=== PATIENT | male | born 1945 | race Caucasian/White ===

== ENCOUNTER 2018-08-11 13:59 | Outpatient (CLI) | payer MEDICARE, MEDICAID ==
[2018-08-11] MEDS ORDERED: SIMV40TA3 PO (14:30)
[2018-08-11] MEDS ORDERED: CHLO25TA PO (14:30)
[2018-08-11] MEDS ORDERED: AMLO10TA8 PO (14:30)
[2018-08-11] MEDS ORDERED: LISI40TA PO (14:30)
[2018-08-11 15:10] LABS: MICROSCOPIC NOT IND
[2018-08-11 15:13] LABS: BASOPHILS # (AUTO) 0.01 x10^3/uL (0-0.1); BASOPHILS % (AUTO) 0 % (0-1); EOSINOPHILS # (AUTO) 0.15 x10^3/uL (0-0.4); EOSINOPHILS % (AUTO) 1 % (1-7); LYMPHOCYTES # (AUTO) 2.13 x10^3/uL (1-3.4); LYMPHOCYTES % (AUTO) 20 % (22-44); MD NO; MEAN CORPUSCULAR HEMOGLOBIN 32.2 pg (27.5-34.5); MEAN CORPUSCULAR HGB CONC 33.7 g/dL (33.2-36.2); MEAN CORPUSCULAR VOLUME 95.5 fL (81-97); MEAN PLATELET VOLUME 7.7 fL (7.4-10.4); MONOCYTES # (AUTO) 0.66 x10^3/uL (0.2-0.8); MONOCYTES % (AUTO) 6 % (2-9); NEUTROPHILS % (AUTO) 72 % (42-75); PLATELET COUNT 282 x10^3/uL (130-400); RED BLOOD COUNT 4.02 x10^6/uL (4.38-5.82); RED CELL DISTRIBUTION WIDTH 14.5 % (9.4-14.8)
[2018-08-11 15:14] LABS: CULTURE INDICATED? NO
[2018-08-11 15:26] LABS: ALANINE AMINOTRANSFERASE 34 U/L (12-78); ALBUMIN 3.9 g/dL (3.4-5.0); ANION GAP 7 mmol/L (5-15); CALCIUM 8.9 mg/dL (8.5-10.1); CHLORIDE 103 mmol/L (98-107); CREATININE 1.02 mg/dL (0.7-1.3)
[2018-08-11 15:28] LABS: ALKALINE PHOSPHATASE 57 U/L (45-117); BILIRUBIN,TOTAL 0.4 mg/dL (0.2-1.0); TOTAL PROTEIN 7.1 g/dL (6.4-8.2)
[2018-08-11 16:29] LABS: INTERNATIONAL NORMALIZED RATIO 0.91 (0.93-1.1); PROTHROMBIN TIME 9.6 Seconds (9.6-11.5)
== END 2018-08-11 23:59 | disposition home or self-care (01) ==
LOC: STAR 13:59
PROVIDERS: ATTEND Neurological Surgery
DX: M48.02 Spinal stenosis, cervical region (principal)
CPT/HCPCS: 36415; 80053; 81003; 85025; 85610; 85730; 93005

== ENCOUNTER 2018-08-26 06:51 | Inpatient (IN) | payer MEDICARE, MEDICAID ==
[~2018-08-26] VITALS: Ht 165.1 cm; Wt 81.0 kg
[~2018-08-26 06:51] MED LIST: AMLO10TA8 PO; CHLO25TA PO; LISI40TA PO; SIMV40TA3 PO
[2018-08-26] MEDS ORDERED: BUPIVACAINE/PF-EPI 0.5% 1:200K ONE (06:52)
[2018-08-26] MEDS ORDERED: THROMBIN 20,000 UNIT VIAL TP ONE (06:53)
[2018-08-26] MEDS ORDERED: BACITRACIN 50,000 UNIT ONE (06:53)
[2018-08-26] MEDS ORDERED: LACTATED RINGERS 1,000 ML IV SCH (07:21)
[2018-08-26] MEDS ORDERED: LIDOCAINE-MPF 1%, 2ML INFIL ONE (07:30)
[2018-08-26] MEDS ORDERED: CEFAZOLIN 1,000 MG ONE (09:56)
[2018-08-26] MEDS ORDERED: PROPOFOL 10 MG/ML, 20ML ONE (09:56)
[2018-08-26] MEDS ORDERED: EPHEDRINE 50 MG/ML, 1ML ONE (09:56)
[2018-08-26] MEDS ORDERED: PROPOFOL 10 MG/ML, 50ML ONE (09:56)
[2018-08-26] MEDS ORDERED: FENTANYL PF 250 MCG/5ML ONE (10:00)
[2018-08-26] MEDS ORDERED: BUPIVACAINE/PF-EPI 0.5% 1:200K INFIL ONE (10:18)
[2018-08-26] MEDS ORDERED: BACITRACIN 50,000 UNIT IM ONE (10:18)
[2018-08-26] MEDS ORDERED: ALBUTEROL SULFATE 2.5 MG/3 ML NPPB PRN (11:30)
[2018-08-26] MEDS ORDERED: MEPERIDINE/PF 25MG/0.5ML IVPush PRN (11:30)
[2018-08-26] MEDS ORDERED: ACETAMINOPHEN 325 MG TABLET PO PRN (11:30)
[2018-08-26] MEDS ORDERED: DIAZEPAM 5 MG/ML, 2ML IVPush PRN (11:30)
[2018-08-26] MEDS ORDERED: PROMETHAZINE 25 MG/ML, 1ML IV PRN (11:30)
[2018-08-26] MEDS ORDERED: hydrALAzine 20 MG/ML, 1ML IV PRN (11:30)
[2018-08-26] MEDS ORDERED: OXYcodone 5 MG/5 ML ORAL.SOL UDC PO PRN (11:30)
[2018-08-26] MEDS ORDERED: FENTANYL PF 100 MCG/2ML IV PRN (11:30)
[2018-08-26] MEDS ORDERED: LABETALOL 5MG/ML, 20ML IV PRN (11:30)
[2018-08-26] MEDS ORDERED: HYDROmorphone PCA 30 MG/30 ML IV PRN (12:30)
[2018-08-26] MEDS ORDERED: DIPHENHYDRAMINE 50 MG/ML, 1ML IVPush PRN (12:30)
[2018-08-26] MEDS ORDERED: MAGNESIUM HYDROXIDE 8%, 30ML UDC PO PRN (12:30)
[2018-08-26] MEDS ORDERED: HYDROmorphone 1 MG/ML, 1ML AMP IVPush PRN (12:30)
[2018-08-26] MEDS ORDERED: BISACODYL 10 MG SUPP PR PRN (12:30)
[2018-08-26] MEDS ORDERED: ONDANSETRON 2MG/ML, 2ML IVPush PRN (12:30)
[2018-08-26] MEDS ORDERED: PHARMACY MAY ADJ FOR RENAL FX MC PRN (12:30)
[2018-08-26] MEDS ORDERED: PROMETHAZINE 25 MG/ML, 1ML IM PRN (12:30)
[2018-08-26] MEDS ORDERED: HYDROmorphone 1 MG/ML, 1ML AMP ONE (12:39)
[2018-08-26] MEDS ORDERED: OXYcodone 5 MG/5 ML ORAL.SOL UDC ONE (12:39)
[2018-08-26] MEDS: HYDROmorphone 2 MG/ML, 1ML IVPush PRN ×2 (12:47→13:16)
[2018-08-26] MEDS: NS + 20MEQ KCL 1,000 ML IV SCH (14:30)
[2018-08-26] MEDS: OXYcodone/APAP 5/325MG TABLET PO PRN ×2 (16:46→22:21)
[2018-08-26] MEDS ORDERED: PNEUMOCOCCAL 23 VACCINE IM-VACC ONE (17:30)
[2018-08-26] MEDS: CEFAZOLIN PMX 1GM/50ML 50 ML IVPB SCH (19:08)
[2018-08-26] MEDS: SODIUM CHLORIDE FLUSH 10ML SYR IVF SCH (19:51)
[2018-08-26] MEDS: SIMVASTATIN 40 MG TABLET PO SCH (19:51)
[2018-08-26 21:47] VITALS: BP 111/53
[2018-08-27 00:39] VITALS: BP 125/68
[2018-08-27] MEDS: NS + 20MEQ KCL 1,000 ML IV SCH ×2 (02:24→13:06)
[2018-08-27] MEDS: OXYcodone/APAP 5/325MG TABLET PO PRN ×4 (02:30→23:06)
[2018-08-27] MEDS: CEFAZOLIN PMX 1GM/50ML 50 ML IVPB SCH (03:48)
[2018-08-27 04:33] VITALS: BP 121/62
[2018-08-27 08:00] VITALS: BP 124/64
[2018-08-27] MEDS: SENNA/DOCUSATE TABLET PO SCH (08:01)
[2018-08-27] MEDS: CHLORTHALIDONE 25 MG TABLET PO SCH (08:01)
[2018-08-27] MEDS: AMLODIPINE 10 MG TAB PO SCH (08:02)
[2018-08-27] MEDS: LISINOPRIL 20 MG TABLET PO SCH (08:02)
[2018-08-27] MEDS: SODIUM CHLORIDE FLUSH 10ML SYR IVF SCH ×2 (08:03→21:00)
[2018-08-27] MEDS ORDERED: PNEUMOCOCCAL 23 VACCINE IM-VACC ONE (09:00)
[2018-08-27] MEDS: TIZANIDINE 4MG TABLET PO PRN (14:25)
[2018-08-27 15:33] VITALS: BP 93/54
[2018-08-27 21:34] VITALS: BP 135/71
[2018-08-27] MEDS: DEXAMETHASONE 4 MG/ML, 1ML IVPush SCH (22:49)
[2018-08-27] MEDS: SIMVASTATIN 40 MG TABLET PO SCH (23:05)
[2018-08-28] MEDS: NS + 20MEQ KCL 1,000 ML IV SCH ×3 (01:03→22:11)
[2018-08-28] MEDS: DEXAMETHASONE 4 MG/ML, 1ML IVPush SCH ×4 (04:51→22:35)
[2018-08-28 05:23] VITALS: BP 130/66
[2018-08-28 08:18] VITALS: BP 139/71
[2018-08-28] MEDS: SODIUM CHLORIDE FLUSH 10ML SYR IVF SCH ×2 (09:00→19:52)
[2018-08-28] MEDS: CHLORTHALIDONE 25 MG TABLET PO SCH (09:34)
[2018-08-28] MEDS: LISINOPRIL 20 MG TABLET PO SCH (09:34)
[2018-08-28] MEDS: SENNA/DOCUSATE TABLET PO SCH (09:34)
[2018-08-28] MEDS: AMLODIPINE 10 MG TAB PO SCH (09:35)
[2018-08-28] MEDS: OXYcodone/APAP 5/325MG TABLET PO PRN ×2 (09:35→13:27)
[2018-08-28] MEDS: TIZANIDINE 4MG TABLET PO PRN ×2 (13:27→22:35)
[2018-08-28 15:40] VITALS: BP 118/69
[2018-08-28] MEDS: SIMVASTATIN 40 MG TABLET PO SCH (19:50)
[2018-08-28 20:16] VITALS: BP 121/67
[2018-08-29 02:30] VITALS: BP 129/73
[2018-08-29] MEDS: DEXAMETHASONE 4 MG/ML, 1ML IVPush SCH (05:00)
[2018-08-29 07:47] VITALS: BP 134/74
[2018-08-29] MEDS: LISINOPRIL 20 MG TABLET PO SCH (08:06)
[2018-08-29] MEDS: SENNA/DOCUSATE TABLET PO SCH (08:06)
[2018-08-29] MEDS: CHLORTHALIDONE 25 MG TABLET PO SCH (08:06)
[2018-08-29] MEDS: AMLODIPINE 10 MG TAB PO SCH (08:06)
[2018-08-29] MEDS: TIZANIDINE 4MG TABLET PO PRN (08:06)
[2018-08-29] MEDS: SODIUM CHLORIDE FLUSH 10ML SYR IVF SCH (08:07)
[2018-08-29] MEDS ORDERED: HYDROcodone/CHLORPHENIR ORAL SUSP PO PRN (08:30)
[2018-08-29] MEDS ORDERED: TIZA2TAB PO (09:08)
[2018-08-29] MEDS ORDERED: OXYC1TAB7 PO (09:08)
[2018-08-29] MEDS: NS + 20MEQ KCL 1,000 ML IV SCH (09:37)
[2018-08-29 11:25] VITALS: BP 126/64
== END 2018-08-29 12:43 | disposition home or self-care (01) | DRG 472 ==
LOC: ORIP 06:51 → 4NOR 13:52 → DCLOUNGE 08-29 12:24
PROVIDERS: ADMIT Neurological Surgery; ATTEND Neurological Surgery
PROC: 00NW0ZZ Release Cervical Spinal Cord, Open Approach (ICD-10-PCS; 2018-08-26)
PROC: 0RB30ZZ Excision of Cervical Vertebral Disc, Open Approach (ICD-10-PCS; 2018-08-26)
PROC: 0RG20A0 Fusion of 2 or more Cervical Vertebral Joints with Interbody Fusion Device, Anterior Approach, Anterior Column, Open Approach (ICD-10-PCS; principal; 2018-08-26 09:30)
DX: M48.02 Spinal stenosis, cervical region (principal); M50.023 Cervical disc disorder at C6-C7 level with myelopathy; M50.021 Cervical disc disorder at C4-C5 level with myelopathy; M50.022 Cervical disc disorder at C5-C6 level with myelopathy; I10 Essential (primary) hypertension; M19.90 Unspecified osteoarthritis, unspecified site; I25.10 Atherosclerotic heart disease of native coronary artery without angina pectoris
CPT/HCPCS: 71046; 72040; 95938; 95941; C1713; G0378; J0690; J1100; J1170; J2704; J3010; J3480; J7120

== ENCOUNTER → 2018-10-02 | Outpatient (CLI) | payer MEDICAID, MEDICARE ==
[~2018-10-02] MED LIST changes: +OXYC1TAB7 PO; +TIZA2TAB PO
== END | disposition home or self-care (01) ==
LOC: RAD 14:57
PROVIDERS: ATTEND Nurse Practitioner Family
DX: M47.812 Spondylosis without myelopathy or radiculopathy, cervical region (principal); R20.0 Anesthesia of skin
CPT/HCPCS: 72040

== ENCOUNTER 2019-01-15 08:34 | Outpatient (CLI) | payer MEDICARE, MEDICAID | END 2019-01-15 23:59 | disposition home or self-care (01) | LOC: STAR 08:34 | PROVIDERS: ATTEND Neurological Surgery | DX: Z01.818 Encounter for other preprocedural examination (principal); M54.12 Radiculopathy, cervical region; I44.4 Left anterior fascicular block | CPT/HCPCS: 36415; 71046; 80053; 81003; 85025; 85610; 85730; 93005 ==